=== PATIENT | female | born 1955 | race Caucasian/White ===

== ENCOUNTER → 2017-01-05 | Day surgery (SDC) | payer OTHER | END | disposition home or self-care (01) | LOC: FIMAGING 10:30 | PROVIDERS: ATTEND Internal Medicine Infectious Disease | PROC: 02HV33Z Insertion of Infusion Device into Superior Vena Cava, Percutaneous Approach (ICD-10-PCS; principal; 2017-01-05) | DX: L03.211 Cellulitis of face (principal) | CPT/HCPCS: 36569; 77001; C1751 ==

== ENCOUNTER 2017-01-06 03:17 | Emergency (ER) | payer OTHER ==
[2017-01-06 03:27] VITALS: BP 140/80; PULSE 78; RESP 20; TEMP 98.4; O2SAT 96
--- NOTE | 2017-01-06 04:21 | EDPHY ---
H & P Stated Complaint: worried picc line might be clogged Time Seen by Provider: 01/06/17 04:13 HPI/ROS: Chief complaint: PICC line problem HPI: Patient had a PICC line placed yesterday in her right AC for treatment of a group a strep facial cellulitis for which she is receiving Rocephin. Patient noticed this morning that there was blood backing up into the patient was worried that it might be clotted are clogged. Denies any redness or pain at the PICC site. No chest pain or shortness of breath. No fevers or chills. States that her face is hurting from the cellulitis but otherwise no new complaints. ROS: 10 point Review of Systems is negative except as noted in the HPI. Physical exam: Gen: Awake, Alert, No Distress HEENT: She has erythema on her nose and left cheek with a bulla consistent with her cellulitis. There is no orbital involvement. Nose: no rhinorrhea Eyes: PERRLA, EOMI Mouth: Moist mucosa Neck: Supple, no JVD Ext: PICC line in place in her right AC. There is scant minimal blood around it. Does nerve erythema. Is nontender. There is some blood in the pick Skin: Per face exam Neuro: CN II-XII intact, Sensation grossly intact, Strength 5/5 in bilateral upper and lower extremities - Personal History Current Tetanus Diphtheria and Acellular Pertussis (TDAP): Yes - Medical/Surgical History Hx Asthma: No Hx Chronic Respiratory Disease: No Hx Diabetes: No Hx Cardiac Disease: No Hx Renal Disease: No Hx Cirrhosis: No Hx Alcoholism: No Hx HIV/AIDS: No Hx Splenectomy or Spleen Trauma: No Other PMH: facial cellulitis,. hypertension, mild aortic stenosis - Social History Smoking Status: Never smoked Constitutional: Initial Vital Signs Temperature (C) 36.9 C 01/06/17 03:25 Heart Rate 78 01/06/17 03:25 Respiratory Rate 20 01/06/17 03:25 Blood Pressure 140/80 H 01/06/17 03:25 O2 Sat (%) 96 01/06/17 03:25 O2 Delivery Mode Room Air Allergies/Adverse Reactions: amoxicillin Allergy (Verified 01/06/17 03:23) minocycline Allergy (Verified 01/06/17 03:23) Home Medications: Medication Instructions Recorded Aspirin 01/06/17 Lisinopril 01/06/17 Medical Decision Making ED Course/Re-evaluation: PICC line was flushed and angela back easily here. There were no complications. Patient will be discharged home in reassured that the PICC line is functioning normally. Will follow up with her doctor as needed. Departure - Departure Disposition: Home, Routine, Self-Care Clinical Impression: PICC (peripherally inserted central catheter) flush Condition: Good Instructions: Peripherally Inserted Central Catheters and Midline Catheters (ED ) Additional Instructions: Follow up with Dr. Arnold, infectious Disease on Sunday. Return to the emergency depart for increasing infection, pain, chest pain, shortness of breath, or any other concerns. Referrals: NONE *PRIMARY CARE P,. [Primary Care Provider] - As per Instructions Karla Arnold MD [Medical Doctor] - As per Instructions
== END 2017-01-06 04:30 | disposition home or self-care (01) ==
DX: T82.898A Other specified complication of vascular prosthetic devices, implants and grafts, initial encounter (principal); I10 Essential (primary) hypertension; Z79.82 Long term (current) use of aspirin; Y71.2 Prosthetic and other implants, materials and accessory cardiovascular devices associated with adverse incidents